=== PATIENT | female | born 1975 ===

== ENCOUNTER 2017-10-23 07:20 | Day surgery (SDC) | payer OTHER ==
[~2017-10-23 07:20] MED LIST: OSEL75CA PO; TUSSI PRES-B L120 M1 PO
== END 2017-10-23 12:10 | disposition home or self-care (01) ==
LOC: AMB-ENDOS 07:20 → CIR.AMB 15:30 → AMB-ENDOS 15:30
DX: D12.6 Benign neoplasm of colon, unspecified (principal); K57.30 Diverticulosis of large intestine without perforation or abscess without bleeding; K64.8 Other hemorrhoids